=== PATIENT | female | born 1975 | race Two or more races ===

== ENCOUNTER 2017-03-28 15:57 | Emergency (ER) | payer SELFPAY ==
[~2017-03-28] VITALS: Ht 157.5 cm; Wt 63.5 kg
[2017-03-28] MEDS ORDERED: NKM (16:07)
[2017-03-28] MEDS ORDERED: Methocarbamol 750mg tab ORAL ONE (16:30)
[2017-03-28 17:19] VITALS: BP 121/84
[2017-03-28] MEDS ORDERED: Morphine Sulfate 4mg/ml Inj IM ONE (17:45)
[2017-03-28] MEDS ORDERED: IBUPROFEN600 MG ORAL (17:59)
[2017-03-28] MEDS ORDERED: ROBAXIN-750750 MG PO (17:59)
[2017-03-28 18:18] VITALS: BP 121/84
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
== END 2017-03-28 18:20 | disposition home or self-care (01) ==
LOC: EMR 16:28
DX: M62.838 Other muscle spasm (principal); T14.8 Other injury of unspecified body region; V49.9XXA Car occupant (driver) (passenger) injured in unspecified traffic accident, initial encounter; Y93.9 Activity, unspecified; Y92.410 Unspecified street and highway as the place of occurrence of the external cause
CPT/HCPCS: 96372; 99284; J2270